=== PATIENT | female | born 2000 | race Two or more races ===

== ENCOUNTER 2024-01-14 09:27 | Outpatient (CLI) | payer OTHER | END 2024-01-14 09:28 | disposition home or self-care (01) | LOC: PRENATAL 09:27 | PROVIDERS: ATTEND Obstetrics & Gynecology Maternal & Fetal Medicine | DX: O26.842 Uterine size-date discrepancy, second trimester (principal); O99.212 Obesity complicating pregnancy, second trimester; Z3A.27 27 weeks gestation of pregnancy ==

== ENCOUNTER → 2024-12-25 | Emergency (ER) | payer OTHER ==
[~2024-12-25] VITALS: Ht 152.4 cm; Wt 97.5 kg
[~2024-12-25] MED LIST: 0.9 % SODIUM CHLORIDE 1,000 ML IV STA; PRENATAL VITAM1 EAC6 PO
[2024-12-25 07:08] LABS: ALBUMIN 3.2 gm/dL (3.4-5.0); BILIRUBIN TOTAL 0.2 mg/dL (0.3-1.2); CALCIUM 9.1 mg/dL (8.5-10.1); CREATININE SERUM 0.38 mg/dL (0.55-1.02); GFR 208.06; GLOBULINA 3.7 G/DL (2.4-3.5); POTASSIUM 4.36 mEq/L (3.5-5.1); TOTAL PROTEIN 6.9 gm/dL (6.4-8.2)
[2024-12-25 07:10] LABS: BASO % 0.3 % (0.1-1.2); EOS # 0.25 (0.04-0.54); EOS % 3.7 % (0.7-7.0); HEMATOCRIT 38.3 % (34.1-44.9); HEMOGLOBIN 12.6 g/dL (11.2-15.7); LYMPH # 2.25 (1.18-3.74); LYMPH % 32.9 % (19.3-53.1); MEAN CORPUSCULAR HEMOGLOBIN 26.9 pg (25.6-32.2); MONO % 5.9 % (4.7-12.5); NEUT # 3.88 (1.56-6.13); NEUT % 56.8 % (34.0-71.1); PLATELET COUNT 311 K/uL (163-369); RED BLOOD COUNT 4.69 M/uL (3.93-5.22); RED CELL DISTRIBUTION WIDTH 14.9 % (11.6-14.4)
[2024-12-25 07:13] LABS: INR 0.96
[2024-12-25 07:14] LABS: PROTHROMBIN TIME 10.5 SECONDS (9.0-11.5)
== END | disposition home or self-care (01) ==
LOC: ER 04:12
DX: O20.9 Hemorrhage in early pregnancy, unspecified (principal); Z3A.14 14 weeks gestation of pregnancy; Z88.0 Allergy status to penicillin

== ENCOUNTER → 2025-04-03 | Outpatient (CLI) | payer OTHER ==
[~2025-04-03] MED LIST changes: -0.9 % SODIUM CHLORIDE 1,000 ML IV STA; +ACETAMINOPHEN 500 MG GEL..CAP PO PRN; +CHLORHEXIDINE GLUCONATE 120 ML BOTTLE TOP ONE; +ERYTHROMYCIN BASE OPHT 1GM EACH TUBE OP ONE; +LIDOCAINE HCL 1% 10ML VIAL ONE; +OXYTOCIN 10 UNITS/ML VIAL ONE; +OXYTOCIN 20 UNITS/1000ML RL PIGGYBAG IV ONE
[2025-04-03 15:45] VITALS: BP 120/80
[2025-04-03 19:00] VITALS: BP 120/80
== END | disposition left against medical advice (07) ==
LOC: OBS/DEL 16:10
PROVIDERS: ATTEND Obstetrics & Gynecology
DX: O26.893 Other specified pregnancy related conditions, third trimester (principal); R10.2 Pelvic and perineal pain; T14.8XXA Other injury of unspecified body region, initial encounter; V49.9XXA Car occupant (driver) (passenger) injured in unspecified traffic accident, initial encounter; Z3A.30 30 weeks gestation of pregnancy

== ENCOUNTER 2025-05-10 14:38 | Outpatient (CLI) | payer OTHER ==
[~2025-05-10 14:38] MED LIST changes: -ACETAMINOPHEN 500 MG GEL..CAP PO PRN; -CHLORHEXIDINE GLUCONATE 120 ML BOTTLE TOP ONE; -ERYTHROMYCIN BASE OPHT 1GM EACH TUBE OP ONE; -LIDOCAINE HCL 1% 10ML VIAL ONE; -OXYTOCIN 10 UNITS/ML VIAL ONE; -OXYTOCIN 20 UNITS/1000ML RL PIGGYBAG IV ONE
[2025-05-10 15:18] VITALS: BP 116/75
== END 2025-05-10 16:00 | disposition home or self-care (01) ==
LOC: NST 14:38
PROVIDERS: ATTEND Obstetrics & Gynecology
DX: Z34.83 Encounter for supervision of other normal pregnancy, third trimester (principal)

== ENCOUNTER 2025-05-28 10:34 | Outpatient (CLI) | payer OTHER | END 2025-05-28 12:26 | disposition home or self-care (01) | LOC: NST 10:34 | PROVIDERS: ATTEND Obstetrics & Gynecology | DX: Z34.83 Encounter for supervision of other normal pregnancy, third trimester (principal) ==

== ENCOUNTER 2025-06-07 09:30 | Inpatient (IN) | payer OTHER ==
[~2025-06-07] VITALS: Ht 152.4 cm; Wt 2.3 kg
[2025-06-07 12:22] LABS: BASO % 0.4 % (0.1-1.2); EOS # 0.06 (0.04-0.54); EOS % 0.8 % (0.7-7.0); LYMPH # 2.15 (1.18-3.74); LYMPH % 29.3 % (19.3-53.1); MEAN PLATELET VOLUME 11.00 fl (9.4-12.4); MONO # 0.46 (0.24-0.82); MONO % 6.3 % (4.7-12.5); NEUT # 4.60 (1.56-6.13); NEUT % 62.7 % (34.0-71.1); RED CELL DISTRIBUTION WIDTH 14.7 % (11.6-14.4)
[2025-06-07 12:41] LABS: INR < 0.93
[2025-06-07 13:09] LABS: ALT/SGPT 16.0 U/L (12-78); AST/SGOT 12.0 U/L (15-37); BILIRUBIN TOTAL 0.38 mg/dL (0.3-1.2); BUN CREA RATIO 28.0 (7.0-25.0); CREATININE SERUM 0.46 mg/dL (0.55-1.02); GFR 165.51; GLOBULINA 3.7 G/DL (2.4-3.5); GLUCOSE FASTING 69.0 mg/dL (65-100); OSMOLALITY SERUM 276.0 MOSM/KG (275-295)
[2025-06-11 06:17] VITALS: BP 137/89
[2025-06-11] MEDS ORDERED: CLINDAMYCIN PHOSPHATE 150 MG/ML (300mg) ONE (09:24)
[2025-06-11] MEDS ORDERED: CLINDAMYCIN PHOSPHATE 150 MG/ML (600mg) ONE (09:24)
[2025-06-11] MEDS ORDERED: OXYTOCIN 10 UNITS/ML VIAL ONE (09:25)
[2025-06-11] MEDS ORDERED: CITRIC ACID/SODIUM CITRATE 30 ML BLIST.PACK PO ONE (09:25)
[2025-06-11] MEDS ORDERED: ERYTHROMYCIN BASE OPHT 1GM EACH TUBE OP ONE (09:25)
[2025-06-11] MEDS ORDERED: OXYTOCIN 1,000 ML IV ONE (17:15)
[2025-06-11] MEDS ORDERED: GENTAMICIN SULFATE 40 MG/ML VIAL IV ONE (17:30)
[2025-06-11] MEDS ORDERED: CLINDAMYCIN PHOSPHATE 150 MG/ML (900mg) IV ONE (17:30)
[2025-06-11] MEDS ORDERED: KETOROLAC TROMETHAMINE 30 MG VIAL IV SCH (18:00)
[2025-06-11] MEDS ORDERED: GENTAMICIN SULFATE 40 MG/ML VIAL ONE (18:28)
[2025-06-11] MEDS ORDERED: KETOROLAC TROMETHAMINE 30 MG VIAL ONE (19:11)
[2025-06-11] MEDS ORDERED: LABETALOL HCL 100 MG/20 ML ML ONE (19:51)
[2025-06-11] MEDS ORDERED: MORPHINE SULFATE 4 MG/ML VIAL IV SCH (20:00)
[2025-06-11] MEDS ORDERED: MAGNESIUM SULFATE IN WATER 2 GM/50 ML PIGGYBAG IV ONE (20:45)
[2025-06-11] MEDS ORDERED: LABETALOL HCL 20MG/4ML SYRINGE IV ONE (20:45)
[2025-06-11 21:43] VITALS: BP 145/94; O2SAT 100
[2025-06-11 23:09] VITALS: BP 124/83
[2025-06-12] MEDS ORDERED: LABETALOL HCL 200 MG TABLET PO SCH
[2025-06-12] MEDS ORDERED: CYCLOBENZAPRINE HCL 5 MG TABLET PO SCH (01:00)
[2025-06-12 04:17] VITALS: BP 110/67
[2025-06-12] MEDS ORDERED: ACETAMINOPHEN 500 MG GEL..CAP PO SCH (06:00)
[2025-06-12 07:19] LABS: BASO % 0.3 % (0.1-1.2); EOS # 0.02 (0.04-0.54); EOS % 0.2 % (0.7-7.0); LYMPH # 1.18 (1.18-3.74); LYMPH % 12.3 % (19.3-53.1); MEAN PLATELET VOLUME 11.30 fl (9.4-12.4); MONO # 0.45 (0.24-0.82); MONO % 4.7 % (4.7-12.5); NEUT # 7.91 (1.56-6.13); NEUT % 82.2 % (34.0-71.1); RED CELL DISTRIBUTION WIDTH 14.5 % (11.6-14.4)
[2025-06-12 07:20] VITALS: BP 98/75
[2025-06-12 07:46] LABS: ALT/SGPT 15.0 U/L (12-78); AST/SGOT 25.0 U/L (15-37); BILIRUBIN TOTAL 0.54 mg/dL (0.3-1.2); BUN CREA RATIO 24.0 (7.0-25.0); CREATININE SERUM 0.51 mg/dL (0.55-1.02); GFR 146.93; GLOBULINA 3.1 G/DL (2.4-3.5); GLUCOSE FASTING 84.0 mg/dL (65-100); OSMOLALITY SERUM 276.0 MOSM/KG (275-295)
[2025-06-12] MEDS ORDERED: PNV,CALCIUM 72/IRON/FOLIC ACID 1 TAB TABLET PO SCH (09:00)
[2025-06-12] MEDS ORDERED: DOCUSATE SODIUM 100MG CAP PO SCH (09:00)
[2025-06-12] MEDS ORDERED: SIMETHICONE 125 MG CAPSULE PO SCH (09:00)
[2025-06-12] MEDS ORDERED: GABAPENTIN 300 MG CAPSULE PO SCH (09:00)
[2025-06-12 12:56] VITALS: BP 130/84
[2025-06-12 19:23] VITALS: BP 129/85
[2025-06-13 02:13] VITALS: BP 114/69
[2025-06-13 09:35] VITALS: BP 130/87
[2025-06-13 13:06] VITALS: BP 132/86
== END 2025-06-13 16:32 | disposition home or self-care (01) | DRG 785 ==
LOC: O/R 06-11 09:00 → OB/GYN 06-11 09:30 → LDR 06-11 21:32 → OB/GYN 06-12 08:22
PROVIDERS: Obstetrics & Gynecology Gynecology; ADMIT Obstetrics & Gynecology; ATTEND Obstetrics & Gynecology
PROC: 0UB70ZZ Excision of Bilateral Fallopian Tubes, Open Approach (ICD-10-PCS; 2025-06-11)
PROC: 4A1HXCZ Monitoring of Products of Conception, Cardiac Rate, External Approach (ICD-10-PCS; 2025-06-11)
PROC: 10D00Z1 Extraction of Products of Conception, Low, Open Approach (ICD-10-PCS; principal; 2025-06-11 15:30)
DX: O34.211 Maternal care for low transverse scar from previous cesarean delivery (principal); Z30.2 Encounter for sterilization; Z3A.38 38 weeks gestation of pregnancy; Z37.0 Single live birth